=== PATIENT | male | born 1970 | race Two or more races ===

== ENCOUNTER 2016-08-15 00:46 | Emergency (ER) | payer MEDICAID ==
[~2016-08-15] VITALS: Ht 170.2 cm; Wt 81.6 kg
[2016-08-15] MEDS ORDERED: LORAZEPAM 1 MG TABLET ONE (06:27)
[2016-08-15] MEDS ORDERED: LORAZEPAM 1 MG TABLET PO ONE (06:30)
[2016-08-15 07:09] VITALS: BP 120/77
== END 2016-08-15 07:12 | disposition home or self-care (01) ==
LOC: ER 00:47
DX: F41.9 Anxiety disorder, unspecified (principal); I10 Essential (primary) hypertension; F32.9 Major depressive disorder, single episode, unspecified; F10.20 Alcohol dependence, uncomplicated; F17.210 Nicotine dependence, cigarettes, uncomplicated
CPT/HCPCS: 93005; 99284; A4606; Z7610

== ENCOUNTER 2016-08-15 17:13 | Emergency (ER) | payer MEDICAID | END 2016-08-15 19:02 | disposition left against medical advice (07) | LOC: ER 17:14 | DX: Z53.21 Procedure and treatment not carried out due to patient leaving prior to being seen by health care provider (principal) ==

== ENCOUNTER 2016-08-16 11:54 | Emergency (ER) | payer MEDICAID ==
[~2016-08-16] VITALS: Ht 172.7 cm; Wt 79.4 kg
[2016-08-16 12:59] LABS: CALCIUM, SERUM 8.5 mg/dL (8.5-10.1); CREATININE 0.7 mg/dL (0.6-1.3); POTASSIUM 4.5 mmol/L (3.5-5.1)
[2016-08-16 13:07] LABS: ALBUMIN 3.7 g/dL (3.4-5.0); BILIRUBIN,TOTAL 0.2 mg/dL (0.2-1.0); TOTAL PROTEIN, SERUM 7.5 g/dL (6.4-8.2)
[2016-08-16 13:08] LABS: INDIRECT BILIRUBIN 0.2 mg/dL (0.0-1.1)
[2016-08-16 13:23] LABS: BASOPHILS # (AUTO) 0.1 /CMM (0.0-0.2); BASOPHILS % (AUTO) 1.6 % (0.0-2.0); DIFF TOTAL % 100 %; EOSINOPHILS % (AUTO) 0.3 % (0.0-6.0); HEMATOCRIT 47 % (39-51); HEMOGLOBIN 15.1 g/dL (13.5-17.5); LYMPHOCYTES # (AUTO) 2.6 /CMM (0.8-4.8); LYMPHOCYTES % (AUTO) 32.3 % (20.0-44.0); MEAN CORPUSCULAR HEMOGLOBIN 29 PG (26.0-33.0); MEAN CORPUSCULAR HGB CONC 32 g/dl (31.0-36.0); MEAN CORPUSCULAR VOLUME 90 fL (80-96); MONOCYTES # (AUTO) 0.3 /CMM (0.1-1.30); MONOCYTES % (AUTO) 3.4 % (2.0-12.0); NEUTROPHILS # (AUTO) 4.9 /CMM (1.8-8.9); NEUTROPHILS % (AUTO) 62.4 % (43.0-81.0); PLATELET COUNT (AUTO) 213 /CMM (150-450); RED BLOOD CELL COUNT(AUTO) 5.25 MIL/uL (4.5-6.0); WHITE BLOOD COUNT (AUTO) 7.9 K/uL (4.3-11.0)
[2016-08-16] MEDS ORDERED: ACETAMINOPHEN ES 500 MG TABLET ONE (16:53)
[2016-08-16] MEDS ORDERED: ACETAMINOPHEN 650 MG/20.3 ML UDC PO ONE (17:00)
[2016-08-16 18:00] VITALS: BP 128/84
== END 2016-08-16 18:01 | disposition home or self-care (01) ==
LOC: ER 11:54
DX: F10.129 Alcohol abuse with intoxication, unspecified (principal); F41.9 Anxiety disorder, unspecified; R74.8 Abnormal levels of other serum enzymes; R40.4 Transient alteration of awareness; I10 Essential (primary) hypertension; F32.9 Major depressive disorder, single episode, unspecified; F17.200 Nicotine dependence, unspecified, uncomplicated
CPT/HCPCS: 36415; 70450; 80048; 80076; 82962; 83690; 85025; 99285; A4606; G0481; Z7610; G6040-TC

== ENCOUNTER 2016-08-16 20:14 | Emergency (ER) | payer MEDICAID ==
[~2016-08-16] VITALS: Ht 170.2 cm; Wt 71.2 kg
[2016-08-17 05:33] VITALS: BP 110/70
== END 2016-08-17 05:34 | disposition home or self-care (01) ==
LOC: ER 20:15
DX: F41.9 Anxiety disorder, unspecified (principal); F10.129 Alcohol abuse with intoxication, unspecified; F32.9 Major depressive disorder, single episode, unspecified; F17.210 Nicotine dependence, cigarettes, uncomplicated; I10 Essential (primary) hypertension
CPT/HCPCS: 99284; A4606; Z7610

== ENCOUNTER 2016-08-20 23:14 | Emergency (ER) | payer MEDICAID ==
[~2016-08-20] VITALS: Ht 144.8 cm; Wt 68.0 kg
[2016-08-21 02:20] VITALS: BP 132/83
== END 2016-08-21 02:21 | disposition home or self-care (01) ==
LOC: ER 23:15
DX: M25.511 Pain in right shoulder (principal); F20.9 Schizophrenia, unspecified; I10 Essential (primary) hypertension; F32.9 Major depressive disorder, single episode, unspecified; F41.9 Anxiety disorder, unspecified; F17.200 Nicotine dependence, unspecified, uncomplicated
CPT/HCPCS: 99283; A4606; Z7610

== ENCOUNTER 2016-08-21 05:12 | Emergency (ER) | payer MEDICAID ==
[~2016-08-21] VITALS: Ht 165.1 cm; Wt 68.0 kg
[2016-08-21 05:12] VITALS: BP 144/78
== END 2016-08-21 05:47 | disposition home or self-care (01) ==
LOC: ER 05:13
DX: F41.9 Anxiety disorder, unspecified (principal); F20.9 Schizophrenia, unspecified; I10 Essential (primary) hypertension; F32.9 Major depressive disorder, single episode, unspecified; M25.569 Pain in unspecified knee; G89.29 Other chronic pain; F17.210 Nicotine dependence, cigarettes, uncomplicated; F10.20 Alcohol dependence, uncomplicated
CPT/HCPCS: 99284; A4606; Z7610